=== PATIENT | female | born 1945 | race Caucasian/White ===

== ENCOUNTER → 2023-01-20 | Outpatient (CLI) | payer MEDICARE ==
--- NOTE | 2023-01-20 15:21 | BD ---
EXAMINATION TYPE: Axial Bone Density DATE OF EXAM: 01/20/2023 CLINICAL HISTORY: 77 years old Female. ICD-10 CODE: M85.80 OSTEOPENIA Height: 66 Weight: 151 FRAX RISK QUESTIONS: Family History (Parent hip fracture): yes Current Tobacco Use: yes RISK FACTORS HISTORY OF: History of Wrist Fracture: lt wrist broken as a youth Family History of Osteoporosis: yes, mother with hip fx Postmenopausal woman: yes, at age 52 yrs old Hyperparathyroidism: no Adrenal Insufficiency: no MEDICATIONS: Additional Medications: bp meds, vit d, calcium, statin for cholesterol, Additional History: hypertension, cholesterol, EXAM MEASUREMENTS: Bone mineral densitometry was performed using the [employer] System. Bone mineral density as measured about the Lumbar spine is: ----- L1-L4(G/cm2): 0.963 T Score Values are as follows: ----- L1: -1.9 ----- L2: -1.4 ----- L3: -2.5 ----- L4: -1.6 ----- L1-L4: -1.6 Z Score Values are as follows: ----- L1: -0.2 ----- L2: 0.2 ----- L3: -0.8 ----- L4: 0.0 ----- L1-L4: -0.2 Bone mineral density new to [facility] Bone mineral density about the R hip (g/cm2): 0.762 Bone mineral density about the L hip (g/cm2): 0.821 T Score values are as follows: -----R Neck: -2.2 -----L Neck: -1.5 -----R Total: -2.0 -----L Total: -1.5 Z Score values are as follows: -----R Neck: -0.3 -----L Neck: 0.3 -----R Total: -0.3 -----L Total: 0.0 Bone mineral density new to [facility] FRAX%s: The graph provided illustrates a 34.0% chance for a major osteoporotic fx and a 26.0% chance for the hips probability for fx in 10 years time. IMPRESSION: Osteopenia borderline osteoporosis. (T Score between -2.5 and -1). There is slightly increased risk of fracture and the patient may be considered for treatment. Re-Screen 2-5 years. NOTE: T-SCORE=SD OF THE YOUNG ADULT MEAN.
--- NOTE | 2023-01-21 08:23 | MM ---
Reason for Exam: Screening (asymptomatic). Last mammogram was performed 4 year(s) and 6 month(s) ago. Patient History: Menarche at age 14. Patient has no children. Postmenopausal. Risk Values: Lizette 5 year model risk: 2.0%. NCI Lifetime model risk: 4.2%. Prior Study Comparison: 10/21/2015 Bilateral Screening Mammogram, [facility]. 06/28/2018 Bilateral Screening Mammogram, [facility]. Tissue Density: There are scattered fibroglandular densities. Findings: Analyzed By CAD. There is no suspicious group of microcalcifications or new suspicious mass in either breast. Overall Assessment: Negative, BI-RAD 1 Management: Screening Mammogram of both breasts in 1 year. A clinical breast exam by your physician is recommended on an annual basis and results should be correlated with mammographic findings. Electronically signed and approved by: Hernán Ewing M.D.
== END | disposition home or self-care (01) ==
LOC: RADBDWWP 12:22
PROVIDERS: ATTEND Family Medicine
DX: Z12.31 Encounter for screening mammogram for malignant neoplasm of breast (principal); M81.0 Age-related osteoporosis without current pathological fracture; M85.89 Other specified disorders of bone density and structure, multiple sites; I10 Essential (primary) hypertension; E78.00 Pure hypercholesterolemia, unspecified; Z78.0 Asymptomatic menopausal state; Z72.0 Tobacco use
CPT/HCPCS: 77063; 77067; 77080

== ENCOUNTER → 2024-02-13 | Outpatient (CLI) | payer MEDICARE ==
--- NOTE | 2024-02-14 19:31 | MM ---
Reason for Exam: Screening (asymptomatic). Last mammogram was performed 1 year(s) and 1 month(s) ago. Patient History: Menarche at age 14. Patient has no children. Postmenopausal. Risk Values: Lizette 5 year model risk: 2.0%. NCI Lifetime model risk: 4.0%. Prior Study Comparison: 10/21/2015 Bilateral Screening Mammogram, [facility]. 06/28/2018 Bilateral Screening Mammogram, [facility]. 01/20/2023 Bilateral MG 3D screening mammo w/cad, [facility]. Tissue Density: There are scattered areas of fibroglandular density. Findings: Analyzed By CAD. Enlarging nodule posterior 12:00 left breast for which further evaluation is recommended. Otherwise, no significant abnormality seen. Overall Assessment: Incomplete: need additional imaging evaluation, BI-RAD 0 Management: Special View Mammogram of the left breast. Diagnostic Breast Ultrasound of the left breast. . [facility] will attempt to contact patient to return for supplemental views and ultrasound if indicated. Electronically signed and approved by: Mehreen Zimmerman M.D. Radiologist
== END | disposition home or self-care (01) ==
LOC: RADMAMWWP 10:18
PROVIDERS: ATTEND Obstetrics & Gynecology
DX: Z12.31 Encounter for screening mammogram for malignant neoplasm of breast (principal); Z78.0 Asymptomatic menopausal state
CPT/HCPCS: 77063; 77067

== ENCOUNTER → 2024-02-16 | Outpatient (CLI) | payer MEDICARE ==
--- NOTE | 2024-02-16 11:03 | MM ---
Reason for Exam: Additional evaluation requested from abnormal screening. Last screening mammogram was performed less than 1 month ago. Patient History: Menarche at age 14. Patient has no children. Postmenopausal. Risk Values: Lizette 5 year model risk: 2.0%. NCI Lifetime model risk: 4.0%. Prior Study Comparison: 06/28/2018 Bilateral Screening Mammogram, [facility]. 01/20/2023 Bilateral MG 3D screening mammo w/cad, [facility]. 02/13/2024 Bilateral MG 3D screening mammo w/cad, [facility]. Tissue Density: Left: There are scattered areas of fibroglandular density. Findings: Analyzed By CAD. Persistent 5 to 6 mm nodular density 11:00 position left breast 6 cm from the nipple. Ultrasound recommended. Overall Assessment: Incomplete: need additional imaging evaluation, BI-RAD 0 Management: Diagnostic Breast Ultrasound of the left breast. . Results were given to the patient verbally at the time of exam. Patient should continue monthly self-breast exams. A clinical breast exam by your physician is recommended on an annual basis. This exam should not preclude additional follow-up of suspicious palpable abnormalities. Note on Lizette scores and lifetime risk: 1. A Lizette score greater than 3% is considered moderate risk. If this is the case, consider specialist referral to assess eligibility for a risk reducing agent. 2. If overall lifetime risk for the development of breast cancer is 20% or higher, the patient may qualify for future screening with alternating mammogram and breast MRI. Electronically signed and approved by: Darrell Cordero M.D. Radiologis
--- NOTE | 2024-02-16 11:16 | USB ---
Reason for Exam: Additional evaluation requested from abnormal screening. Patient History: Menarche at age 14. Patient has no children. Postmenopausal. Risk Values: Lizette 5 year model risk: 2.0%. NCI Lifetime model risk: 4.0%. Technique: Method: Targeted. Prior Study Comparison: 06/28/2018 Bilateral Screening Mammogram, [facility]. 01/20/2023 Bilateral MG 3D screening mammo w/cad, [facility]. 02/13/2024 Bilateral MG 3D screening mammo w/cad, [facility]. Findings: The upper section of the breast of the left breast, the axilla of the left breast and the retroareolar of the left breast were scanned. Well-circumscribed hypoechoic lesion at the left 12:00 position 6 cm from the nipple measures 3 x 3 mm and is too small to appropriately characterize however likely reflects a cyst. Six-month follow-up ultrasound recommended. Overall Assessment: Probably benign, BI-RAD 3 Management: Diagnostic Breast Ultrasound of the left breast in 6 months. A clinical breast exam by your physician is recommended on an annual basis and results should be correlated with mammographic findings. This exam should not preclude additional follow-up of suspicious palpable abnormalities. Results were given to the patient verbally at the time of exam. Electronically signed and approved by: Darrell Cordero M.D. Radiologis
== END | disposition home or self-care (01) ==
LOC: RADMAMWWP 10:22
PROVIDERS: ATTEND Obstetrics & Gynecology
DX: R92.322 Mammographic fibroglandular density, left breast (principal); Z78.0 Asymptomatic menopausal state
CPT/HCPCS: 77065; 76642; G0279; 77061

== ENCOUNTER → 2024-08-20 | Outpatient (CLI) | payer MEDICARE ==
--- NOTE | 2024-08-20 11:14 | USB ---
Patient History: Menarche at age 14. Patient has no children. Postmenopausal. Risk Values: Lizette 5 year model risk: 1.9%. NCI Lifetime model risk: 3.7%. Technique: Method: Targeted. Prior Study Comparison: 01/20/2023 Bilateral MG 3D screening mammo w/cad, [facility]. 02/13/2024 Bilateral MG 3D screening mammo w/cad, [facility]. 02/16/2024 Left MG 3D work up w/cad , [facility]. Findings: The upper section of the breast of the left breast, the axilla of the left breast and the retroareolar of the left breast were scanned. Ultrasound left breast 12:00 position including scanning of the subareolar region and axilla. At the 12:00 position, 6 cm from the nipple, there is redemonstration of a cyst measuring 3 x 3 x 2 mm, likely mammographic correlate. No other solid or cystic lesion or axillary lymphadenopathy. Overall Assessment: Probably benign, BI-RAD 3 Management: Diagnostic Mammogram of both breasts in 6 months. A clinical breast exam by your physician is recommended on an annual basis and results should be correlated with mammographic findings. This exam should not preclude additional follow-up of suspicious palpable abnormalities. Results were given to the patient verbally at the time of exam. [facility], , 08/20/2024 11:11 AM. Electronically signed and approved by: Mehreen Zimmerman M.D. Radiologist
== END | disposition home or self-care (01) ==
LOC: RADUSWWP 10:30
PROVIDERS: ATTEND Family Medicine
DX: R92.8 Other abnormal and inconclusive findings on diagnostic imaging of breast

== ENCOUNTER → 2025-02-19 | Outpatient (CLI) | payer MEDICARE ==
--- NOTE | 2025-02-19 13:31 | MM ---
Reason for Exam: Follow-up at short interval from prior study. Last screening mammogram was performed 12 month(s) ago. Patient History: Menarche at age 14. Patient has no children. Postmenopausal. Risk Values: Lizette 5 year model risk: 1.9%. NCI Lifetime model risk: 3.7%. Prior Study Comparison: 01/20/2023 Bilateral MG 3D screening mammo w/cad, [facility]. 02/13/2024 Bilateral MG 3D screening mammo w/cad, [facility]. 02/16/2024 Left MG 3D work up w/cad LT, [facility]. Tissue Density: There are scattered areas of fibroglandular density. Findings: There are loosely grouped benign-appearing round calcification is in the left breast redemonstrated. No suspicious new mass or distortion in either breast. Overall Assessment: Benign, BI-RAD 2 Management: Screening Mammogram of both breasts in 1 year. . Results were given to the patient verbally at the time of exam. Patient should continue monthly self-breast exams. A clinical breast exam by your physician is recommended on an annual basis. This exam should not preclude additional follow-up of suspicious palpable abnormalities. Note on Lizette scores and lifetime risk: 1. A Lizette score greater than 3% is considered moderate risk. If this is the case, consider specialist referral to assess eligibility for a risk reducing agent. 2. If overall lifetime risk for the development of breast cancer is 20% or higher, the patient may qualify for future screening with alternating mammogram and breast MRI. [facility], , 02/19/2025 1:28 PM. Electronically signed and approved by: Hernán Ewing M.D.
== END | disposition home or self-care (01) ==
LOC: RADMAMWWP 13:05
PROVIDERS: ATTEND Family Medicine
DX: R92.8 Other abnormal and inconclusive findings on diagnostic imaging of breast (principal); R92.1 Mammographic calcification found on diagnostic imaging of breast; R92.323 Mammographic fibroglandular density, bilateral breasts; Z78.0 Asymptomatic menopausal state
CPT/HCPCS: 77062; 77066

== ENCOUNTER → 2025-04-10 | Outpatient (CLI) | payer MEDICARE ==
--- NOTE | 2025-04-10 16:39 | BD ---
EXAMINATION TYPE: Axial Bone Density DATE OF EXAM: 04/10/2025 CLINICAL HISTORY: 79 years old Female. ICD-10 CODE: M85.89 OTH DISRD OF BONE DENSITY AND STRUCTURE, MU , Additional History: Height: 65.6 Weight: 149 FRAX RISK QUESTIONS: Family History (Parent hip fracture): yes Glucocorticoids (More than 3mos): yes, for copd and allergies, (Ex: prednisone, prednisolone, methylprednisolone, dexamethasone, and hydrocortisone). History of Fracture in Adulthood: yes 3. Menopause before 45: no, at 52 Current Tobacco Use: yes RISK FACTORS HISTORY OF: hypertension, cholesterol, hx of broken toes, stent for abdominal aortic aneurysm. History of Wrist Fracture: yes, left, young MEDICATIONS: bp meds, cholesterol, vid d, calcium, EXAM MEASUREMENTS: Bone mineral densitometry was performed using the [employer] System. Bone mineral density as measured about the Lumbar spine is: ----- L1-L4(G/cm2): 1.022 T Score Values are as follows: ----- L1: -1.1 ----- L2: -1.8 ----- L3: -2.3 ----- L4: -0.3 ----- L1-L4: -1.3 Z Score Values are as follows: ----- L1: 0.6 ----- L2: 0.0 ----- L3: -0.6 ----- L4: 1.4 ----- L1-L4: 0.4 Bone mineral density has: Increased 6.1% since study of: [id number] Bone mineral density about the R hip (g/cm2): 0.760 Bone mineral density about the L hip (g/cm2): 0.803 T Score values are as follows: -----R Neck: -2.3 -----L Neck: -1.7 -----R Total: -2.0 -----L Total: -1.6 Z Score values are as follows: -----R Neck: -0.3 -----L Neck: 0.3 -----R Total: -0.2 -----L Total: 0.2 Bone mineral density has: Decreased -1.4% since study of: 01.20.2023 FRAX%s: The graph provided illustrates a 48.7% chance for a major osteoporotic fx and a 38.7% chance for the hips probability for fx in 10 years time. IMPRESSION: Osteopenia (T Score between -2.5 and -1). There is slightly increased risk of fracture and the patient may be considered for treatment. Re-Screen 2-5 years. NOTE: T-SCORE=SD OF THE YOUNG ADULT MEAN. [facility], , 04/10/2025 4:37 PM
== END | disposition home or self-care (01) ==
LOC: RADBDWWP 13:36
PROVIDERS: ATTEND Family Medicine
DX: M85.89 Other specified disorders of bone density and structure, multiple sites (principal)
CPT/HCPCS: 77080